=== PATIENT | male | born 1990 ===

== ENCOUNTER 2018-04-28 13:02 | Emergency (ER) | payer OTHER ==
[2018-04-28 13:15] VITALS: BP 123/73
[2018-04-28] MEDS ORDERED: CYCLOBENZAPRINE HCL 10 MG TABLET PO ONE (13:57)
[2018-04-28] MEDS ORDERED: IBUPROFEN 600 MG TABLET PO ONE (13:57)
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
== END 2018-04-28 15:57 | disposition home or self-care (01) ==
LOC: ER 13:02
DX: S09.90XA Unspecified injury of head, initial encounter (principal); V89.2XXA Person injured in unspecified motor-vehicle accident, traffic, initial encounter
CPT/HCPCS: 70450; 72125; 99284